=== PATIENT | male | born 2000 | race Caucasian/White ===

== ENCOUNTER 2018-04-18 17:16 | Emergency (ER) | payer OTHER ==
[~2018-04-18] VITALS: Ht 190.5 cm; Wt 71.5 kg
[2018-04-18 17:28] VITALS: BP 137/72; PULSE 85; RESP 14; TEMP 98.8; O2SAT 98
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
== END 2018-04-18 20:56 | disposition home or self-care (01) ==
LOC: NEPD 17:16
DX: R06.02 Shortness of breath (principal)
CPT/HCPCS: 71045; 71046; 99283